=== PATIENT | male | born 1955 | race Caucasian/White ===

== ENCOUNTER 2016-09-07 19:51 | Emergency (ER) | payer OTHER, MEDICAID ==
[~2016-09-07] VITALS: Ht 165.1 cm; Wt 70.0 kg
[2016-09-07 20:36] VITALS: Ht 165.1 cm; Wt 70.0 kg
[2016-09-07] MEDS ORDERED: LORA1TAB PO (21:14)
--- NOTE | 2016-09-07 21:20 | ERD ---
ER Documentation Chief Complaint Date/Time DATE: 09/07/16 TIME: 21:18 Chief Complaint Pygreer pt. depress and anxious, not slept for days HPI 7-year-old male history of depression, anxiety who presents the emergency room because of insomnia. He states that he ran out of multiple medications. He sees a psychiatrist tomorrow morning however he states that he usually needs Ativan to help him sleep. The patient is requesting a refill of this medication. He denies any suicidal homicidal ideation. No other complaints. ROS All systems reviewed and are negative except as per history of present illness. Medications Home Meds Active Scripts Lorazepam* (Lorazepam*) 1 Mg Tablet, 1 MG PO QHS Y for INSOMNIA, #4 TAB Prov:MORALES PICKARD MD 09/07/16 Allergies Allergies: Coded Allergies: No Known Allergy (Unverified , 09/07/16) PMhx/Soc Medical and Surgical Hx: pt denies Surgical Hx Hx Psychiatric Problems: Yes (bipolar, anxiety, depression) Hx Alcohol Use: No Hx Substance Use: Yes (marijuana) Hx Tobacco Use: Yes Smoking Status: Current every day smoker FmHx Family History: No diabetes Physical Exam Vitals Vital Signs Date Time Temp Pulse Resp B/P Pulse Ox O2 Delivery O2 Flow Rate FiO2 09/07/16 20:36 97.4 71 20 124/79 95 Physical Exam General: Well developed, well nourished, no acute distress Head: Normocephalic, atraumatic. Eyes: EOM intact ENT: Moist mucous membranes Neck: Full ROM Respiratory: No respiratory distress Cardiovascular: Good capillary refil Abdominal: Nondistended : Deferred MSK: No edema, no unilateral swelling, 5/5 strength Neurologic: Alert and oriented, moving all extremities, normal speech, steady gait Skin: No rash Psych: Normal mood, no suicidal or homicidal ideation Procedures/MDM Patient presents with insomnia, requesting medication refill. No signs of acute psychosis. No signs of acute medical condition. The patient is following up with a psychiatrist tomorrow for refill of the majority of his medications. He has no evidence of acute psychosis. The patient will be given 4 tablets of Ativan to take for insomnia. The patient was advised to follow-up with primary psychiatrist tomorrow for further refills of medications. Patient states understanding and is safe for discharge. Departure Diagnosis: Primary Impression: Insomnia Insomnia type: unspecified Qualified Code: G47.00 - Insomnia, unspecified type Condition: Stable Patient Instructions: Treating Insomnia Additional Instructions: See your psychiatrist in am for medication refil. MORALES PICKARD MD Sep 07, 2016 21:19
[2016-09-07 21:21] VITALS: BP 124/70; PULSE 67; RESP 18
== END 2016-09-07 21:21 | disposition home or self-care (01) ==
LOC: E/R 19:51
DX: G47.00 Insomnia, unspecified (principal); F17.210 Nicotine dependence, cigarettes, uncomplicated
CPT/HCPCS: 99281

== ENCOUNTER 2016-09-13 21:39 | Emergency (ER) | payer OTHER, MEDICAID ==
[~2016-09-13] VITALS: Ht 172.7 cm; Wt 73.5 kg
[~2016-09-13 21:39] MED LIST: LORA1TAB PO
[2016-09-13 21:41] VITALS: Ht 172.7 cm; Wt 73.5 kg
[2016-09-13] MEDS ORDERED: DIAZEPAM 5 MG TAB PO ONE (22:30)
--- NOTE | 2016-09-13 22:47 | ERD ---
ER Documentation Chief Complaint Date/Time DATE: 09/13/16 TIME: 22:33 Chief Complaint insomnia x 4 days HPI 69-year-old male patient with history of bipolar depression and anxiety presents to the emergency room for insomnia. Patient reports that he was seen and treated in this emergency department on September 07, 2016 and given for 1 mg Ativan. He reports that he ran out of medication 3 days ago and has not slept since. Patient has seen his psychiatrist last week. Reports that he was started on Seroquel, temazepam discontinued, and started on Wellbutrin for smoking cessation. Patient denies any suicidal ideation, denies any homicidal thoughts. Patient reports that he has stress related to money, states he walked here from [address] did not have money for the bus. Reports that he does not have money for a prescription. Denies alcohol, illegal drugs, states he does smoke medical marijuana which helps for insomnia but does not have money for any medication. Patient reports that he lives alone. ROS All systems reviewed and are negative except as per history of present illness. Medications Home Meds Active Scripts Promethazine Hcl* (Phenergan*) 25 Mg Tablet, 25 MG PO QHS Y for SLEEP, #10 TAB Prov:CARLOS,STELLA 09/13/16 Lorazepam* (Lorazepam*) 1 Mg Tablet, 1 MG PO QHS Y for INSOMNIA, #4 TAB Prov:MORALES PICKARD MD 09/07/16 Allergies Allergies: Coded Allergies: No Known Allergy (Unverified , 09/07/16) PMhx/Soc History of Surgery: No Anesthesia Reaction: No Hx Neurological Disorder: No Hx Respiratory Disorders: No Hx Cardiac Disorders: Yes (HTN) Hx Psychiatric Problems: Yes (bipolar, anxiety, depression) Hx Miscellaneous Medical Probl: Yes (DM, HYPERCHOLESTEROLEMIA, PROSTATE CA) Hx Alcohol Use: No Hx Substance Use: Yes (marijuana) Hx Tobacco Use: Yes Smoking Status: Current every day smoker Physical Exam Vitals Vital Signs Date Time Temp Pulse Resp B/P Pulse Ox O2 Delivery O2 Flow Rate FiO2 09/13/16 21:41 97.9 86 20 108/62 98 Vitals stable, triage notes reviewed Physical Exam Const: No acute distress Head: Atraumatic Eyes: Normal Conjunctiva, PERRLA, EOMI ENT: . Neck: Resp: Chest rise and fall symmetrically, Cardio: Regular rate and rhythm, no murmurs Abd: Skin: Back: Ext: Neur: Awake and alert Psych: Normal Mood and Affect animated and happy at first, becomes flat by end of interview process. Thoughts are clear, no SI/HI Results 24 hrs Current Medications Medications (Trade) Dose Ordered Sig/Malka Route PRN Reason Start Time Stop Time Status Last Admin Dose Admin Diazepam (Valium) 5 mg ONCE ONCE PO 09/13/16 22:30 09/13/16 22:31 DC 09/13/16 22:19 Procedures/MDM Patient presents with insomnia patient requesting medication for sleep. No signs of psychosis, no suicidal ideation, homicidal ideation. Patient was given 5 mg of Valium and placed in waiting room. Chart review shows patient received for 1 mg Ativan on September 07, 2016. Nurse practitioner will not be able to prescribed a benzodiazepine at this time for discharge. Patient will talk to registration about receiving token for bus or taxi. Will follow up with social service for financial concerns. I will prescribe patient p.o. promethazine for sleep. Follow-up with primary care physician, social service, and psychiatry. I feel the patient is stable for discharge at this time. I have discussed results, examination findings, the treatment plan with the patient and family present prior to discharge. Indications for emergent reevaluation, side effects of medication were also discussed. All questions were answered. Patient verbalizes understanding and agrees with plan of care. Departure Diagnosis: Primary Impression: Insomnia Insomnia type: due to other mental disorder Qualified Code: F51.05 - Insomnia due to other mental disorder Additional Impression: Financial difficulty Condition: Good Patient Instructions: Treating Insomnia Referrals: [facility] Additional Instructions: Thank you for for coming to [facility] for your care today. Please ask your nurse or provider if you have questions about your care today and do not leave until all your questions have been answered. Please use any medications given as directed and follow-up with your doctor (or the doctor you were referred to) in the next 2-3 days. If you do not have a primary care doctor you may follow up at the [facility] (listed below). You may also use motrin and tylenol as needed for fever and/or pain unless instructed otherwise by your provider or nurse. Indications for more urgent follow-up have been discussed, but you may return to the Emergency Department at ANY time for any worrisome or worsening symptoms. If you have abdominal pain, please know that no test or exam you received is perfect and you should follow up within 8 hours for continued pain. If you had any imaging studies today, such as an X-Ray or CT Scan, these studies will be reviewed later by a radiologist. You will be called if there are important findings that were not identified today, so make sure the contact information you provided at registration is correct. If you received any narcotic pain control medicine today, such as Vicodin, Morphine or Dilaudid, your coordination and judgment may be affected for a number of hours. Please do not drive or operate heavy machinery, and you may want someone to assist you at home. If you were given a prescription for narcotic medication, be aware that it is very addictive- use sparingly and only if necessary. STELLA GONZALEZ Sep 13, 2016 22:44
[2016-09-13] MEDS ORDERED: PROM25TA14 PO ×2 (22:48→22:54)
== END 2016-09-13 22:59 | disposition home or self-care (01) ==
LOC: FTE 21:39
DX: F51.05 Insomnia due to other mental disorder (principal); I10 Essential (primary) hypertension; E11.9 Type 2 diabetes mellitus without complications; F17.210 Nicotine dependence, cigarettes, uncomplicated; Z59.8 Other problems related to housing and economic circumstances; Z85.46 Personal history of malignant neoplasm of prostate
CPT/HCPCS: 99283